=== PATIENT | male | born 1985 | race African-American/Black ===

== ENCOUNTER 2016-06-16 08:26 | Emergency (ER) | payer OTHER ==
[2016-06-16 11:01] LABS: ABSOLUTE EOSINOPHILS # (AUTO) 0.1 10^3/uL (0.0-0.6); ABSOLUTE LYMPHOCYTES (AUTO) 1.9 10^3/uL (0.5-4.7); ABSOLUTE MONOCYTES (AUTO) 0.9 10^3/uL (0.1-1.4); BASOPHILS % (AUTO) 0.2 % (0-2); EOSINOPHILS % (AUTO) 1.3 % (0-6); HEMATOCRIT 45.2 % (37.9-51.0); HGB HCT DIFFERENCE -0.2; LYMPHOCYTES % (AUTO) 21.7 % (13-45); MEAN CORPUSCULAR HEMOGLOBIN 27.2 pg (27.0-33.4); MEAN CORPUSCULAR HGB CONC 33.2 g/dL (32.0-36.0); MEAN CORPUSCULAR VOLUME 82 fl (80-97); MONOCYTES % (AUTO) 9.6 % (3-13); RED BLOOD COUNT 5.53 10^6/uL (4.35-5.55); RED CELL DISTRIBUTION WIDTH 14.1 % (11.5-14.0); SEGMENTED NEUTROPHILS % (AUTO) 67.2 % (42-78); WHITE BLOOD COUNT 8.9 10^3/uL (4.0-10.5)
[2016-06-16 11:11] LABS: ALANINE AMINOTRANSFERASE 41 U/L (21-72); ALBUMIN 4.2 g/dL (3.5-5.0); ALKALINE PHOSPHATASE 65 U/L (38-126); ANION GAP 13 (5-19); ASPARTATE AMINO TRANSFERASE 23 U/L (17-59); BILIRUBIN,DIRECT 0.3 mg/dL (0.0-0.4); BLOOD UREA NITROGEN 17 mg/dL (7-20); CALCIUM 9.5 mg/dL (8.4-10.2); CARBON DIOXIDE 28 mmol/L (22-30); CHLORIDE 102 mmol/L (98-107); CREATININE RESULT 0.93 mg/dL (0.52-1.25); GLUCOSE 116 mg/dL (75-110); SODIUM 142.5 mmol/L (137-145); TOTAL PROTEIN 7.1 g/dL (6.3-8.2); URIC ACID 6.5 mg/dL (3.5-8.5)
--- NOTE | 2016-06-16 12:58 | ER Document Report ---
ED Extremity Problem, Lower - General Chief Complaint: Foot Injury Stated Complaint: RIGHT FOOT PAIN Notes: Patient is complaining of pain and swelling of his right foot since Monday. Patient says that he was at [facility] for 3 days, wearing socks and shoes in the heat and humidity. He noticed the beginning of swelling and pain of his foot on Monday as they were getting ready to leave [facility]. Pain is increased and he went to the [place] clinic and they sent him here. He recalls no injury to the foot. No insect bites. Has never had this before. No fever. Does not have a history of gout. TRAVEL OUTSIDE OF THE [place] IN LAST 30 DAYS: No - Related Data Allergies/Adverse Reactions: No Known Allergies Allergy (Unverified 06/16/16 08:32) Past Medical History - Social History Smoking Status: Never Smoker Chew tobacco use (# tins/day): No Frequency of alcohol use: Occasional Drug Abuse: None Family History: Reviewed & Not Pertinent Patient has suicidal ideation: No Patient has homicidal ideation: No Endocrine Medical History: Denies: Hx Diabetes Mellitus Type 2 Musculoskeltal Medical History: Denies Hx Arthritis, Denies Hx Gout Surgical Hx: Negative Past Surgical History: Reports: None Review of Systems - Review of Systems Constitutional: denies: Fever Cardiovascular: denies: Chest pain Gastrointestinal: denies: Abdominal pain, Vomiting Skin: See HPI, Other - Soft tissue swelling of the right lateral foot, primarily around the interspace between the fourth and fifth toes. Erythematous there. Between the toes, looks like the appearance of skin when it 's kept moist for an extended period, possibly even producing a fungal infection. Physical Exam - Vital signs Vitals: Temp Pulse Resp BP Pulse Ox 97.8 F 75 17 138/87 H 99 06/16/16 08:34 06/16/16 08:34 06/16/16 08:34 06/16/16 08:34 06/16/16 08:34 Interpretation: Normal - Notes Notes: PHYSICAL EXAMINATION: GENERAL: Well-appearing, in no acute distress. Vital signs are normal. NECK: Normal range of motion, supple. LUNGS: Breath sounds clear and equal bilaterally. HEART: Regular rate and rhythm without murmurs. ABDOMEN: Soft, nontender. No guarding or rebound. BACK: No tenderness throughout entire back. EXTREMITIES: Normal range of motion without pain. Swelling of the dorsal distal lateral right foot, primarily around the web space between the fourth and fifth toes. Spreading those toes open is very painful to the patient. The tissue looks like it's been kept to moist for an extended period of time and may have developed a secondary superficial fungal infection, as well. SKIN: Warm, dry, no rashes. Patient has soft tissue swelling of the right foot around the fourth and fifth toes and there is warmth to the touch and erythema of that area of the foot. Course - Vital Signs Vital signs: Temp Pulse Resp BP Pulse Ox 98.5 F 62 16 119/68 100 06/16/16 13:08 06/16/16 13:08 06/16/16 13:08 06/16/16 13:08 06/16/16 13:08 - Laboratory Result Diagrams: 06/16/16 10:23 06/16/16 10:23 Laboratory results interpreted by me: 06/16/16 06/16/16 10:23 10:23 RDW 14.1 H Glucose 116 H - Diagnostic Test Radiology results interpreted by me: 06/16/16 20:55 x-ray of the right foot is normal. Discharge - Discharge Clinical Impression: Cellulitis of right foot Condition: Stable Disposition: HOME, SELF-CARE Additional Instructions: Cellulitis of the right foot and toes: You have an infection of your skin and underlying soft tissues called cellulitis. This is due to bacteria, which can enter through any break in the skin, or even through an irritated hair follicle. Untreated, cellulitis will usually worsen. Antibiotics are required. Usually, warm packs or warm soaks, and elevation of the infected area are recommended. You should start getting better within 24 to 36 hours. Most infections respond quickly to the right medication. Follow-up care is important, however, to check for abscess (boil) formation, unsuspected foreign body, or resistant infection. If you develop fever, chills, or if the area of infection is becoming rapidly more swollen or painful, call the doctor at once. Skin Fungus You have a fungal infection of the skin. This is sometimes called "ringworm" when it forms a ring. It's called "jock itch" when it occurs in the groin area. The infection results from exposure to another person or an animal carrying the fungus. The fungus prefers areas which are moist and warm. The infection is usually treated with antifungal cream. This is applied two or three times daily. Healing may take two or three weeks. Occasionally, oral medication is necessary, for example, when the infection involves the scalp or nails. Fingernail or toenail infections are very difficult to eradicate, often requiring many weeks of treatment. Return for re-examination if your symptoms change significantly -- for example, if you develop fever or chills, red streaks, increasing tenderness, swelling, or blisters at the infection site. Wash the area around your toes and between your toes with gentle soap such as Dove or Ivory with warm water a couple of times a day. Dry thoroughly after washing, consider using a fan to blow on the area to dry it out. Then, apply the prescribed cream a couple of times a day after the washing process. ANTIBIOTIC THERAPY: You have been given an antibiotic prescription. It's important that you take all the medication, unless instructed otherwise by your physician. Failure to complete the entire course can result in relapse of your condition. Common side effects of antibiotics include nausea, intestinal cramping, or diarrhea. Women may develop vaginal yeast infections, and babies can get yeast (thrush) in the mouth following the use of antibiotics. Contact your physician if you develop significant side effects from this medication. Allergy to this antibiotic can result in hives, wheezing, faintness, or itching. If symptoms of allergy occur, stop the medication and call the doctor. Cephalexin The antibiotic you've been prescribed is a member of the cephalosporin class. This type of antibiotic covers a wide variety of infections, including those of the skin, lungs, and urinary tract. It's useful for staph infections. This antibiotic is slightly similar to the penicillin family. In rare cases , a person who is allergic to penicillin will also be allergic to this medication. If you have had a severe allergic reaction to penicillin, and have not taken this antibiotic since that time, notify your doctor. Antibiotics which cover many germs ("broad spectrum" antibiotics) are more likely to cause diarrhea or "yeast" infections. Women prone to vaginal yeast problems may suffer an attack after taking this antibiotic. In infants, oral thrush (white spots "stuck" on the cheek) or yeast diaper rash may result. See your doctor if these problems occur. Call at once if you develop itching, hives , shortness of breath, or lightheadedness. ORAL NARCOTIC MEDICATION: You have been given a prescription for pain control. This medication is a narcotic. It's best taken with food, as nausea can result if taken on an empty stomach. Don't operate machinery or drive within six hours of taking this medication. Do not combine this medicine with alcohol, or with any medication which can cause sedation (such as cold tablets or sleeping pills) unless you get permission from the physician. Narcotics tend to cause constipation. If possible, drink plenty of fluids and eat a diet high in fiber and fruits. FOLLOW-UP CARE: If you have been referred to a physician for follow-up care, call the physician s office for an appointment as you were instructed or within the next two days. If you experience worsening or a significant change in your symptoms, notify the physician immediately or return to the Emergency Department at any time for re-evaluation. Prescriptions: Cephalexin Monohydrate [Keflex 500 mg Capsule] 500 mg PO QID 7 Days Nystatin/Triamcin [Nystatin-Triamcinolone Ointm] 15 gm TP BID #1 oint...g. Oxycodone HCl/Acetaminophen [Percocet 5-325 mg Tablet] 1 - 2 tab PO Q4H PRN #15 tablet PRN Reason: Forms: Return to Work
[2016-06-16 13:09] VITALS: BP 119/68
--- NOTE | 2016-06-20 08:11 | ER Document Report ---
Doctor's Note Notes: 06/20/16 08:07 Based upon patient's culture results (MRSA, pseudomonas, and Beta strep, I called him yesterday to see how he is doing. Patient said his foot is better, less swelling, less pain, less redness, although he is soaking it frequently and it is draining. I told him to continue the Keflex until gone and then I called in prescriptions for Cipro 500 mg BID #14 and Doxycycline 100 mg BID #14 to the [facility] on [facility] yesterday. Advised patient to take all these meds at the same time until finished. Return for recheck if worsening or no better after the meds are finished. Lindsey Maya MD
== END 2016-06-16 13:09 | disposition home or self-care (01) ==
LOC: ER 08:26
DX: L03.115 Cellulitis of right lower limb (principal); B96.5 Pseudomonas (aeruginosa) (mallei) (pseudomallei) as the cause of diseases classified elsewhere; B95.62 Methicillin resistant Staphylococcus aureus infection as the cause of diseases classified elsewhere; B95.1 Streptococcus, group B, as the cause of diseases classified elsewhere
CPT/HCPCS: 36415; 80053; 84550; 85025; 87070; 87077; 87186; 87205; 99283

== ENCOUNTER 2016-06-21 09:29 | Emergency (ER) | payer OTHER ==
--- NOTE | 2016-06-21 10:19 | ER Document Report ---
ED Extremity Problem, Lower - General Chief Complaint: Foot Pain Stated Complaint: RIGHT FOOT INJURY/FOLLOW UP Mode of Arrival: Ambulatory Information source: Patient TRAVEL OUTSIDE OF THE [place] IN LAST 30 DAYS: No - HPI Location: Foot - Right Quality of pain: Achy Severity: Mild Notes: Patient arrives with complaints of right foot pain. The patient states that he was walking around [place] in wet shoes and developed a blister to his right fifth toe. Subsequently developed cellulitis to this foot. He was seen here on the and diagnosed with cellulitis and sent home on Keflex. Culture showed staph, beta strep, Pseudomonas. 2 days ago he was called in a prescription for doxycycline and Cipro. The patient has been taking all of his antibiotics, he comes to the ER stating that no leg pain or swelling. States that 2 days ago he had a fever, he had no fever since that time and is afebrile here. He denies any other complaints at this time. - Related Data Allergies/Adverse Reactions: No Known Allergies Allergy (Verified 06/21/16 09:32) Past Medical History - Social History Smoking Status: Unknown if Ever Smoked Family History: Reviewed & Not Pertinent Patient has suicidal ideation: No Patient has homicidal ideation: No Endocrine Medical History: Denies: Hx Diabetes Mellitus Type 2 Renal/ Medical History: Denies: Hx Peritoneal Dialysis Musculoskeltal Medical History: Denies Hx Arthritis, Denies Hx Gout Review of Systems - Review of Systems -: Yes All other systems reviewed and negative Physical Exam - Vital signs Vitals: Temp Pulse Resp BP Pulse Ox 98.1 F 87 16 139/92 H 97 06/21/16 09:34 06/21/16 09:34 06/21/16 09:34 06/21/16 09:34 06/21/16 09:34 - General General appearance: Appears well, Alert - HEENT Head: Normocephalic, Atraumatic Eyes: Normal Pupils: PERRL Ears: Normal Mucous membranes: Normal - Respiratory Respiratory status: No respiratory distress Breath sounds: Normal - Cardiovascular Rhythm: Regular Heart sounds: Normal auscultation Murmur: No - Extremities Notes: Patient is noted to have mild swelling and minimal erythema to the dorsum of the right foot. A small open area at the base of the right fifth toe with a small amount of drainage. I do not appreciate any palpable abscess at this time. No redness or swelling of the leg. The dorsum of the foot and the fifth toe are minimally tender to palpation. Normal pulse and sensation distally. Full range of motion of the foot and toes. The patient states that this has greatly improved since his last visit. - Neurological Neuro grossly intact: Yes Cognition: Normal Orientation: AAOx4 [place] Coma Scale Eye Opening: Spontaneous Tamra Coma Scale Verbal: Oriented Tamra Coma Scale Motor: Obeys Commands Tamra Coma Scale Total: 15 Speech: Normal Motor strength normal: LUE, RUE, LLE, RLE Sensory: Normal - Psychological Associated symptoms: Normal affect, Normal mood - Skin Skin Temperature: Warm Skin Moisture: Dry Skin Color: Erythema - Mild erythema to the right dorsal foot. Course - Re-evaluation Re-evalutation: 06/21/16 10:20 Patient is nontoxic. Stable vitals. Patient was seen here on the diagnosed with right foot cellulitis and placed on Keflex. Culture noted to have staph, beta strep, Cipro. 2 days ago he was called in doxycycline as well as Cipro. He's been taking this as well as Keflex for the last 2 days. He reports a fever 2 days ago but no fever since. He states that his foot seems to be improving. He is able to move his toes and his foot with less pain. The redness is improved. His concern is that his foot is still slightly swollen. Foot appears to have mild cellulitis at this time. I offered x-rays to rule out osteomyelitis although the fact that he tells me he is improving and is afebrile makes this less likely. The patient declined any x-rays at this time. He would like some crutches. He'll prescribe him some incense to help with inflammation. He can continue his soaks. Follow-up with his family doctor later this week for reevaluation. He was instructed to return the emergency Department if he has increased pain, increased swelling, increased redness, fever again, or any further concerns. The patient is noted to have elevated blood pressure during today's emergency department visit. The patient was informed of this finding. The patient was instructed that this may be related to pre-hypertension and requires further evaluation with a primary care provider. The patient has no hypertensive symptoms at this time. The patient's emergency department workup and current diagnosis were explained to the patient and or family. Follow-up instructions were provided. Medications if prescribed were discussed. Instructions for when to return to the emergency department including specific worrisome symptoms were discussed with the patient and/or family. - Vital Signs Vital signs: Temp Pulse Resp BP Pulse Ox 98.1 F 87 16 139/92 H 97 06/21/16 09:34 06/21/16 09:34 06/21/16 09:34 06/21/16 09:34 06/21/16 09:34 Discharge - Discharge Clinical Impression: Cellulitis of right foot Condition: Stable Disposition: HOME, SELF-CARE Instructions: Cellulitis ([facility]) Additional Instructions: Continue all your antibiotics as prescribed. Take medications as prescribed. Continue soaking her foot. Follow up with your doctor later this week for reevaluation. Follow-up sooner for increased pain, fever, redness, drainage, or any further concerns. Your blood pressure was elevated during today's visit. Have this rechecked with your doctor. Prescriptions: Diclofenac Sodium [Voltaren] 75 mg PO BID #20 tablet.dr Forms: Elevated Blood Pressure Referrals: NEMO LAWRENCE MD [ACTIVE STAFF] - Follow up as needed
[2016-06-21 10:36] VITALS: BP 129/79
== END 2016-06-21 10:37 | disposition home or self-care (01) ==
LOC: ER 09:29
DX: L03.115 Cellulitis of right lower limb (principal); M79.671 Pain in right foot; R50.9 Fever, unspecified; Z79.899 Other long term (current) drug therapy
CPT/HCPCS: 99283